=== PATIENT | female | born 1935 | race Caucasian/White ===

== ENCOUNTER 2023-07-09 14:50 | Emergency (ER) | payer BC, OTHER ==
[~2023-07-09] VITALS: Ht 152.4 cm; Wt 72.6 kg
[~2023-07-09 14:50] MED LIST: LISI20TA30 PO
[2023-07-09 15:00] VITALS: BP_SYST 154; PULSE 94; RESP 18; TEMP 98.3; O2SAT 97
[2023-07-09 16:35] LABS: BASOPHILS # (AUTO) 0.1 K/uL (0.0-0.2); BASOPHILS % (AUTO) 0.7 % (0.0-2.0); EOSINOPHILS # (AUTO) 0.3 K/uL (0.0-0.4); HEMATOCRIT 41.9 % (36-48); HEMOGLOBIN 14.4 g/dL (12.0-16.0); LYMPHOCYTES # (AUTO) 2.1 K/uL (1.0-5.5); LYMPHOCYTES % (AUTO) 24.8 % (20.5-51.5); MEAN CORPUSCULAR HEMOGLOBIN 32 pg (27-31); MEAN CORPUSCULAR HGB CONC 34 % (32-36); MEAN CORPUSCULAR VOLUME 93 fL (79.0-98.0); MONOCYTES # (AUTO) 0.7 K/uL (0.0-1.0); NEUTROPHILS # (AUTO) 5.3 K/uL (1.8-7.7); NEUTROPHILS % (AUTO) 63.5 % (40.0-70.0); PLATELET COUNT (AUTO) 331 K/uL (130-430); RED BLOOD CELL COUNT(AUTO) 4.52 MIL/uL (4.2-6.2); RED CELL DISTRIBUTION WIDTH 13.7 % (9.0-15.0); WHITE BLOOD COUNT (AUTO) 8.4 K/uL (4.8-10.8)
[2023-07-09 16:48] LABS: ERYTHROCYTE SEDIMENTATION RATE 26 MM/HR (0-20)
[2023-07-09 17:47] VITALS: BP_SYST 154; PULSE 94; RESP 18; TEMP 98.3; O2SAT 97
[2023-07-09] MEDS ORDERED: DOXY100C5 PO (17:52)
[2023-07-09] MEDS ORDERED: AUG875 PO (17:52)
[2023-07-09 18:35] LABS: SOURCE/TYPE ,BODY FLUID OTHER
[2023-07-09 18:36] LABS: BF APPEARANCE UNSPUN BLOODY (CLEAR); BODY FLUID SOURCE/ TYPE OTHER
[2023-07-09 18:53] LABS: APPEARANCE,SPUN,BODY FLUID BLOODY (CLEAR); BODY FLUID COLOR RED (LT YELLOW)
[2023-07-09 18:54] LABS: BODY FLUID TOTAL VOLUME 8.5 mL
[2023-07-09 23:45] LABS: EOSINOPHIL, BODY FLUID 0 %; LYMPHOCYTES, BODY FLUID 4 %; MONOCYTES,BODY FLUID 13 %; NEUTROPHIL, BODY FLUID 83 %; RBC, BODY FLUID 513600 /uL; WBC, BODY FLUID 79778 /uL
[2023-07-10 14:42] LABS: BODY FLUID GLUCOSE 7 mg/dL; BODY FLUID TOTAL PROTEIN 4.1 g/dL
== END 2023-07-09 17:58 | disposition home or self-care (01) ==
LOC: SED 14:50
DX: T81.49XA Infection following a procedure, other surgical site, initial encounter (principal); M00.9 Pyogenic arthritis, unspecified; I10 Essential (primary) hypertension; Z88.5 Allergy status to narcotic agent
CPT/HCPCS: 36415; 72192-TC; 82947; 84157; 85025; 85651; 87070; 89051; 89060; 99284